=== PATIENT | female | born 2000 | race Caucasian/White ===

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

== ENCOUNTER 2018-02-10 07:02 | Emergency (ER) | payer SELFPAY ==
[2018-02-10 07:17] VITALS: BP 123/67
--- NOTE | 2018-02-10 07:26 | UC ---
Skin Complaint HPI - HPI Summary HPI Summary: Patient presents to urgent care with erythema on her lower abdomen. Patient states 2 days ago she had a boil that she tried to pop. Patient states yesterday she put warm compresses on it and noticed it was getting little bit red. Patient states she woke this morning after having been panama all night and she has increased redness. Patient reports mild discomfort. No drainage. Patient didn't interval development of 2 small blisters on the erythema. Patient does have a history of MRSA. Patient is not immunocompromised. Patient states her tetanus is up-to-date. Patient has not taken anything for discomfort. No fevers or chills. No other complaints. Patient's medications reviewed this visit Pt states she is not - History of Current Complaint Chief Complaint: UCRash Time Seen by Provider: 02/10/18 07:21 Stated Complaint: SKIN CONCERN Hx Obtained From: Patient Hx Last Menstrual Period: "Like, forever ago ... it's not regular" Onset/Duration: Gradual Onset Skin Exposure Onset/Duration: Hours Ago Onset Severity: Moderate Pain Intensity: 5 - Allergy/Home Medications Allergies/Adverse Reactions: Allergies Allergy/AdvReac Type Severity Reaction Status Date / Time No Known Allergies Allergy Verified 02/10/18 07:10 PMH/Surg Hx/FS Hx/Imm Hx Previously Healthy: Yes - MRSA Other History Of: Negative For: HIV, Hepatitis B, Hepatitis C, Anticoagulant Therapy - Surgical History Surgical History: Yes Surgery Procedure, Year, and Place: Appendectomy, [place] - Family History Known Family History: Positive: Cardiac Disease, Hypertension, Diabetes - Social History Occupation: Employed Full-time Lives: With Family Alcohol Use: Occasionally Substance Use Type: Marijuana - daily Substance Use Comment - Amount & Last Used: 09/23/17 Smoking Status (MU): Light Every Day Tobacco Smoker Type: Cigarettes Amount Used/How Often: 1/4 PPD Length of Time of Smoking/Using Tobacco: Since Age 14 When Did the Patient Quit Smoking/Using Tobacco: 2 YRS Household Exposure Type: Cigarettes - Immunization History Most Recent Tetanus Shot: UTD Vaccination Up to Date: Yes Review of Systems All Other Systems Reviewed And Are Negative: Yes Skin: Positive: Other Physical Exam - Summary Physical Exam Summary: Vital Signs Reviewed: Yes A+Ox3, no distress Eyes: Conjunctiva Clear, ENT: Hearing grossly normal mmmoist Neck: Positive: Supple Respiratory: Positive: No respiratory distress, No accessory muscle use + CTA throughout no w/r Cardiovascular: RRR nl s1, s2 no m/r CBT <2 sec abd soft + BS nt/nd no guarding, no distension Musculoskeletal Exam: NAIK x 4 without difficulty Strength Intact, ROM Intact Neurological: Positive: Alert, + sensation throughout Psychological: Positive: Normal Response To Family Skin: Positive: lower abd pt with 6x7cm area of erythema with scabbed lesion right lateral aspect part of erythema. Pt also with verticle patch of erythema with 2 small blistered area. no induration, crepitus well demarcated, warm, no fluctuance Triage Information Reviewed: Yes Vital Signs: Initial Vital Signs Temp 97.5 F 02/10/18 07:10 Pulse 87 02/10/18 07:10 Resp 18 02/10/18 07:10 BP 123/67 02/10/18 07:10 Pulse Ox 100 02/10/18 07:10 Images Front/Back of Body, Lg (Otero): 1 - erythema 2 - vetrical erythema with 2 small < 3mm blister Course/Dx - Course Course Of Treatment: Patient presents with progressive area of erythema on her lower abdomen. Patient states started after she manipulated a boil. Patient does have history of MRSA. Patient applied a heating pad overnight. Patient did develop some increased redness and 2 small blisters vertical to this initial erythema. Patient states that he had was not too hot. Patient without any induration or fluctuance. No concern for abscess at this time. Concern for cellulitis. We'll start patient on doxycycline. Discussed with patient wound care. Discussed with patient with strict return precautions emergency department for increased redness, fevers, pain or any other concerns. Patient states understanding and agreement. Blisters covered with nonstick bandage. - Diagnoses Provider Diagnosis: Cellulitis, abdominal wall Discharge - Sign-Out/Discharge Documenting (check all that apply): Patient Departure All imaging exams completed and their final reports reviewed: No Studies - Discharge Plan Condition: Stable Disposition: HOME Prescriptions: DOXYcycline CAP(*) [DOXYcycline 100MG CAP(*)] 100 mg PO BID #20 cap Patient Education Materials: MRSA (Methicillin-Resistant Staphylococcus Aureus ) (ED), Cellulitis (DC) Referrals: Taylor Rojas MD [Primary Care Provider] - Additional Instructions: - Take antibiotics as prescribed until gone - Alternate ibuprofen (Advil, Motrin) and Tylenol every 3 hours for pain. Take food. Do NOT take fore more than 4-5 days - Monitor your area of reddness closely -if you develop increased reddness, red streaking, increased pain, fever or any other concerns it is recommended you go to the emergency department for further evaluation and treatment - Billing Disposition and Condition Condition: STABLE Disposition: Home
== END 2018-02-10 07:37 | disposition home or self-care (01) ==
LOC: UCCORT 07:02
DX: L03.311 Cellulitis of abdominal wall (principal); Z86.14 Personal history of Methicillin resistant Staphylococcus aureus infection
CPT/HCPCS: 99212; G0463

== ENCOUNTER 2018-12-23 14:05 | Emergency (ER) | payer BC ==
--- OUTSIDE RECORDS SUMMARY | 2018-12-23 14:31 | XMS REPORT | Continuity of Care Document ---
:1998 External Reference #:[id number] Author Name Taylor Rojas MD Address [address] [place] [address] Problems Active Problems Provider Date Migraine Taylor Rojas MD Onset: 12/24/2015 Obesity Chloe Jimenez NP Onset: 05/26/2016 Tobacco user Chloe Jimenez NP Onset: 05/26/2016 Pain in limb Derick Fernández MD Onset: 02/20/2017 Carpal tunnel syndrome Taylor Rojas MD Onset: 03/25/2017 Cellulitis of left lower limb Derick Fernández MD Onset: 09/25/2017 Social History Type Date Description Comments Sex Unknown Tobacco Use Start: Unknown Light tobacco smoker (10 or fewer cigarettes/day) Tobacco Use Start: Unknown Never Smoked Cigars Tobacco Use Start: Unknown Never Smoked A Pipe Tobacco Use Start: Unknown Never Used Smokeless Tobacco ETOH Use Occasionally consumes alcohol Tobacco Use Start: Unknown Patient is a current smoker, smokes some days Recreational Drug Use Current Drug User Marijuanna Guns in Home No Allergies, Adverse Reactions, Alerts Description No Known Drug Allergies Medications Active Medications SIG Qnty Indications Ordering Date Provider Pantoprazole Sodium one tab by mouth 30tabs K21.9 Sandy Perea NP 2018 every day 40mg Tablets Citalopraprincess one tab every day 60tabs F33.0 Sandy Perea NP 11/30/2018 Hydrobromide by mouth increase 10mg to 2 tabs a day Tablets after one week Apri 1 by mouth every 168tabs Sandy Perea NP 11/30/2018 0.15-30mg-mcg day Tablets History Medications Omeprazole take one capsule 30caps Sandy Perea NP 11/30/2018 - 40mg by mouth every 12/01/[address] morning Medications Administered in Office Medication SIG Qnty Indications Ordering Provider Date vACCINE Admin Over 18 Nurse Schedule 12/18/2017 Injection MARK Martines 10/15/2016 Injection MARK Martines 11/24/2015 Injection MARK Martines 09/21/2013 Injection MARK Martines 09/14/2013 Injection MARK Martines 08/17/2012 Injection YUSUF Rojas MD 07/30/2011 Injection Immunizations CPT Code Status Date Vaccine Lot # [id number] Given 11/30/2018 Tdap/Adacel [id number] 64465 Given 11/30/2018 Influenza Virus Vaccine, Quadrivalent, Split, [id number] Preservative Free 06352 Given 12/18/2017 Influenza Virus Vaccine, Quadrivalent, Split, [id number] Preservative Free 07681 Given 12/23/2016 Flu Vaccine, Split [id number] 86495 Given 05/26/2016 Trumenba [id number] 83552 Given 11/24/2015 Menactra/menveo [id number] 30763 Given 11/24/2015 Flu Vaccine, Split [id number] 06789 Given 05/09/2015 Trumenba [id number] 67638 Given 02/21/2015 Trumenba [id number] 42718 Given 01/03/2015 Flu Mist [id number] 88495 Given 10/17/2013 Flu Vaccine, Split [id number] 86234 Given 11/24/2012 Flu Mist [id number] 25172 Given 05/23/2011 Gardasil 51492 Given 01/15/2011 Gardasil 19566 Given 10/15/2010 Flu Mist 66584 Given 10/15/2010 Gardasil 12471 Given 11/02/2009 Flu Mist 58207 Given 09/26/2009 Menactra/menveo 31250 Given 09/26/2009 Tdap/Adacel 50428 Given 11/14/2008 Flu Mist 89684 Given 08/21/2006 Varicella/Chicken Pox Vaccine 52455 Given 03/12/2006 Hepatitis A Vaccine 90478 Given 09/05/2005 Hepatitis A Vaccine 97830 Given 08/29/2003 IPV 42605 Given 08/29/2003 MMR 01198 Given 08/29/2003 DTaP 07928 Given 01/21/2000 DTaP 92448 Given 11/21/1999 IPV 59075 Given 11/21/1999 Varicella/Chicken Pox Vaccine 02180 Given 07/30/1999 Hepatitis B/Hib Combvax 91644 Given 07/30/1999 MMR 48399 Given 02/11/1999 DTaP 27775 Given 1998 Hepatitis B/Hib Combvax 87347 Given 1998 IPV 12611 Given 1998 DTaP 61341 Given 1998 Injection Polio Vaccine 24440 Given 1998 Hepatitis B/Hib Combvax 95138 Given 1998 DTaP Vital Signs Date Vital Result Comment 12/07/2018 1:25pm Body Temperature 99.1 F 11/30/2018 2:02pm Body Temperature 98.9 F BP Systolic 129 mmHg BP Diastolic 74 mmHg Heart Rate 74 /min Height 63.5 inches 5'3.50" Weight 225.25 lb BMI (Body Mass Index) 39.3 kg/m2 Right Visual Acuity Distance 20/20 Left Visual Acuity Distance 20/20 Right ear audiology results 20 dBHl Left ear audiology results 20 dBHl Results Test Date Facility Test Result H/L Range Note GC/Chlamydia 11/30/2018 [facility] Chlamydia Negative Negative Amplified Rna [phone] trachomatis Cassandra Neisseria gonorrhoeae (GC) Cassandra Negative Negative Hepatitis Acute 11/30/2018 [facility] Hepatitis B Nonreactive Nonreactive Panel [phone] Surface Antigen Hepatitis B Core IgM Nonreactive Nonreactive Hepatitis A Ab IgM Negative Negative HCV Index 0.02 s/c Hepatitis C Antibody Negative Negative Laboratory test 11/30/2018 [facility] Syphillis Igg Negative Negative 1 finding [phone] W/Reflex RPR Herpes Simplex Type 11/30/2018 [facility] Herpes Simplex Negative Negative 1&2 Igg [phone] Virus I IgG AB Herpes Simplex Virus II IgG AB Negative Negative 2 Laboratory test 11/30/2018 [facility] Herpes Simplex Negative Negative 3 finding [phone] Igm Screen 1 Verbal to SILVANA FREELOVE by [id number] at 1548 on 12/01/18. [id number] 2 Test Performed by: [facility] - [address] [address] [facility] Nurse: Robert Blanco M.D. Ph.D.; CLIA# [id number] ADDITIONAL INFORMATION This test has been modified from the it risk analyst's instructions. Its performance characteristics were determined by [facility] in a manner consistent with CLIA requirements. This test has not been cleared or approved by the U.S. Food and Drug Administration. Test Performed by: [facility] - [address] [address] [facility] Nurse: Robert Blanco M.D. Ph.D.; CLIA# [id number] Procedures Date Code Description Status 11/30/2018 43247 Visual Acuity Screen Bilat. Completed 11/30/2018 64614 Auditometry, Pure Tone Bilat Completed Medical Devices Description No Information Available Encounters Type Date Location Provider Dx Diagnosis Office Visit 11/30/2018 Main Office Taylor Rojas MD Z00.01 Encounter for 1:45p general adult medical exam w abnormal findings F33.0 Major depressive disorder, recurrent, mild Z23 Encounter for immunization Office Visit 09/22/2018 2:45p Main Office Sandy Perea NP R51 Headache Assessments Date Code Description Provider 12/07/2018 L60.0 Ingrowing nail Taylor Rojas MD 11/30/2018 Z00.01 Encounter for general adult medical examination Taylor Rojas MD with abnormal findings 11/30/2018 F33.0 Major depressive disorder, recurrent, mild Taylor Rojas MD 11/30/2018 Z23 Encounter for immunization Taylor Rojas MD 09/22/2018 R51 Headache Sandy Perea NP Plan of Treatment 12/07/2018 - Taylor Rojas MDL60.0 Ingrowing nailComments:soak dailyFollow up :As needed. Functional Status Description No Information Available Mental Status Description No Information Available Referrals Description No Information Available
--- OUTSIDE RECORDS SUMMARY | 2018-12-23 14:31 | XMS REPORT | Continuity of Care Document ---
:1998 External Reference #:[id number] Author Name Taylor Rojas MD Address [address] [place] [address] Problems Active Problems Provider Date Migraine Taylor [...] CPT Code Status Date Vaccine Lot # [id number] Given 11/30/2018 Tdap/Adacel [id number] 95494 Given 11/30/2018 Influenza Virus Vaccine, Quadrivalent, Split, [id number] Preservative Free 84983 Given 12/18/2017 Influenza Virus Vaccine, Quadrivalent, Split, [id number] Preservative Free 06425 Given 12/23/2016 Flu Vaccine, Split [id number] 36178 Given 05/26/2016 Trumenba [id number] 37716 Given 11/24/2015 Menactra/menveo [id number] 76943 Given 11/24/2015 Flu Vaccine, Split [id number] 91699 Given 05/09/2015 Trumenba [id number] 20132 Given 02/21/2015 Trumenba [id number] 78535 Given 01/03/2015 Flu Mist [id number] 50078 Given 10/17/2013 Flu Vaccine, Split [id number] 94055 Given 11/24/2012 Flu Mist [id number] 71993 Given 05/23/2011 Gardasil 69132 Given 01/15/2011 Gardasil 81534 Given 10/15/2010 Flu Mist 63855 Given 10/15/2010 Gardasil 19503 Given 11/02/2009 Flu Mist 69402 Given 09/26/2009 Menactra/menveo 98970 Given 09/26/2009 Tdap/Adacel 74661 Given 11/14/2008 Flu Mist 62128 Given 08/21/2006 Varicella/Chicken Pox Vaccine 83512 Given 03/12/2006 Hepatitis A Vaccine 30520 Given 09/05/2005 Hepatitis A Vaccine 68405 Given 08/29/2003 IPV 05415 Given 08/29/2003 MMR 19128 Given 08/29/2003 DTaP 74128 Given 01/21/2000 DTaP 32897 Given 11/21/1999 IPV 88037 Given 11/21/1999 Varicella/Chicken Pox Vaccine 93333 Given 07/30/1999 Hepatitis B/Hib Combvax 09500 Given 07/30/1999 MMR 11262 Given 02/11/1999 DTaP 93039 Given 1998 Hepatitis B/Hib Combvax 09345 Given 1998 IPV 73716 Given 1998 DTaP 92940 Given 1998 Injection Polio Vaccine 85530 Given 1998 Hepatitis B/Hib Combvax 92011 Given 1998 DTaP Vital Signs Date Vital Result Comment 11/30/2018 2:02pm Body Temperature 98.9 F BP Systolic 129 mmHg BP Diastolic 74 mmHg Heart Rate 74 /min Height 63.5 inches 5'3.50" Weight 225.25 lb BMI (Body Mass Index) 39.3 kg/m2 Right Visual Acuity Distance 20/20 Left Visual Acuity Distance 20/20 Right ear audiology results 20 dBHl Left ear audiology results 20 dBHl 09/22/2018 2:58pm Body Temperature 100.4 F BP Systolic 125 mmHg BP Diastolic 84 mmHg Heart Rate 76 /min Respiratory Rate 32 /min Height 63.75 inches 5'3.75" Weight 231.25 lb BMI (Body Mass Index) 40.0 kg/m2 Results Test Date Facility Test Result H/L Range Note Laboratory test 11/30/2018 [facility] Syphillis Igg <pending> finding [phone] W/Reflex RPR Laboratory test 11/30/2018 [facility] Herpes Simplex <pending> finding [phone] Igm Screen Procedures Description No Information Available Medical Devices Description No Information Available Encounters Type Date Location Provider Dx Diagnosis Office Visit 09/22/2018 2:45p Main Office Sandy Perea NP R51 Headache Assessments Date Code Description Provider 11/30/2018 Z00.01 Encounter for general adult medical examination Taylor Rojas MD with abnormal findings 11/30/2018 F33.0 Major depressive disorder, recurrent, mild Taylor Rojas MD 09/22/2018 R51 Headache Sandy Perea NP Plan of Treatment 11/30/2018 - Taylor Rojas MDZ00.01 Encounter for general adult medical examination with abnormal dmscusduB64.0 Major depressive disorder, recurrent, mildNew Medication:Citalopram Hydrobromide 10 mg - one tab every day by mouth increase to 2 tabs a day after one weekComments:to cut on the drinking or try to stopFollow up:3-4 weeks with me Functional Status Description No Information Available Mental Status Description No Information Available Referrals Description No Information Available
--- OUTSIDE RECORDS SUMMARY | 2018-12-23 14:32 | XMS REPORT | Continuity of Care Document ---
:1998 External Reference #:[id number] Author Name Sandy [place] [address] Problems Active Problems Provider Date Migraine Taylor [...] Alerts Description No Known Drug Allergies Medications Description No Active Medications Medications Administered in Office Medication SIG Qnty Indications Ordering Provider Date vACCINE Admin Over 18 Nurse Schedule 12/18/2017 Injection PPD MARK Umana 10/15/2016 Injection PPD MARK Umana 11/24/2015 Injection MARK Martines 09/21/2013 Injection MARK Martines 09/14/2013 Injection MARK Martines 08/17/2012 Injection YUSUF Rojas MD 07/30/2011 Injection Immunizations CPT Code Status Date Vaccine Lot # [id number] Given 12/18/2017 Influenza Virus Vaccine, Quadrivalent, Split, [id number] Preservative Free 01457 Given 12/23/2016 Flu Vaccine, Split [id number] 33202 Given 05/26/2016 Trumenba [id number] 74073 Given 11/24/2015 Menactra/menveo [id number] 38660 Given 11/24/2015 Flu Vaccine, Split [id number] 13289 Given 05/09/2015 Trumenba [id number] 30883 Given 02/21/2015 Trumenba [id number] 94180 Given 01/03/2015 Flu Mist [id number] 44898 Given 10/17/2013 Flu Vaccine, Split [id number] 25743 Given 11/24/2012 Flu Mist [id number] 81915 Given 05/23/2011 Gardasil 43347 Given 01/15/2011 Gardasil 22069 Given 10/15/2010 Flu Mist 09635 Given 10/15/2010 Gardasil 87543 Given 11/02/2009 Flu Mist 31992 Given 09/26/2009 Menactra/menveo 29087 Given 09/26/2009 Tdap/Adacel 64631 Given 11/14/2008 Flu Mist 56476 Given 08/21/2006 Varicella/Chicken Pox Vaccine 63394 Given 03/12/2006 Hepatitis A Vaccine 54841 Given 09/05/2005 Hepatitis A Vaccine 67781 Given 08/29/2003 IPV 15368 Given 08/29/2003 MMR 91811 Given 08/29/2003 DTaP 26279 Given 01/21/2000 DTaP 57976 Given 11/21/1999 Varicella/Chicken Pox Vaccine 67899 Given 11/21/1999 IPV 58159 Given 07/30/1999 MMR 57381 Given 07/30/1999 Hepatitis B/Hib Combvax 35146 Given 02/11/1999 DTaP 17451 Given 1998 Hepatitis B/Hib Combvax 76638 Given 1998 IPV 28596 Given 1998 DTaP 08086 Given 1998 Injection Polio Vaccine 07575 Given 1998 Hepatitis B/Hib Combvax 96778 Given 1998 DTaP Vital Signs Date Vital Result Comment 09/22/2018 2:58pm Body Temperature 100.4 F BP Systolic 125 mmHg BP Diastolic 84 mmHg Heart Rate 76 /min Respiratory Rate 32 /min Height 63.75 inches 5'3.75" Weight 231.25 lb BMI (Body Mass Index) 40.0 kg/m2 02/23/2018 11:49am Body Temperature 97.2 F Results Description No Information Available Procedures Description No Information Available Medical Devices Description No Information Available Encounters Type Date Location Provider Dx Diagnosis Office Visit 09/22/2018 2:45p Main Office Sandy Perea NP R51 Headache Assessments Date Code Description Provider 09/22/2018 R51 Headache Sandy Perea NP Plan of Treatment 09/22/2018 - Sandy Perea, NPR51 HeadacheComments:Neuro exam is essentially normal. Soumya can take tylenol or motrin for headache. We discussed supports, call if she has concerns.Follow up:As needed. Functional Status Description No Information Available Mental Status Description No Information Available Referrals Description No Information Available
[2018-12-23 14:41] VITALS: BP 127/54
--- NOTE | 2018-12-23 15:09 | UC ---
Complaint Female HPI - HPI Summary HPI Summary: Patient is a 18yo female presenting with itching and burning vulva x3 days. Notes "white clumpy and foul smelling discharge." Notes burning with urination. Denies other urinary symptoms. Denies pelvic pain/pressure. Denies any lesions. Denies any abnormal bleeding. Notes unprotected sex with new partner within the past week. Patient states no concern for any specific STI but would like to be tested. - History Of Current Complaint Chief Complaint: UCGU Stated Complaint: PERSONAL Hx Obtained From: Patient Hx Last Menstrual Period: PCOS - irregular periods Pain Intensity: 0 - Allergies/Home Medications Allergies/Adverse Reactions: Allergies Allergy/AdvReac Type Severity Reaction Status Date / Time No Known Allergies Allergy Verified 12/23/18 14:41 Home Medications: Home Medications Citalopram TAB* [Celexa TAB*] 1 tab PO DAILY 12/23/18 [History Confirmed ] Desogestrel-Ethinyl Estradiol [Enskyce 28 Tablet] 1 tab PO DAILY 12/23/18 [ History Confirmed 12/23/18] PMH/Surg Hx/FS Hx/Imm Hx Previously Healthy: Yes Other History Of: Negative For: HIV, Hepatitis B, Hepatitis C, Anticoagulant Therapy - Surgical History Surgical History: Yes Surgery Procedure, Year, and Place: Appendectomy, [place] - Family History Known Family History: Positive: Cardiac Disease, Hypertension, Diabetes - Social History Alcohol Use: Daily Substance Use Type: Marijuana Substance Use Comment - Amount & Last Used: daily Smoking Status (MU): Heavy Every Day Tobacco Smoker Type: Cigarettes Amount Used/How Often: 1/2 PPD Length of Time of Smoking/Using Tobacco: Since Age 14 When Did the Patient Quit Smoking/Using Tobacco: 2016 Household Exposure Type: Cigarettes - Immunization History Most Recent Tetanus Shot: UTD Vaccination Up to Date: Yes Review of Systems All Other Systems Reviewed And Are Negative: Yes Constitutional: Positive: Negative Respiratory: Positive: Negative Cardiovascular: Positive: Negative Gastrointestinal: Positive: Negative. Negative: Abdominal Pain, Vomiting, Diarrhea, Nausea Genitourinary: Positive: Vaginal/Penile Burning, Vaginal/Penile Itching, Vaginal /Penile Discharge. Negative: Dysuria, Hematuria, Frequency, Urgency, Vaginal/ Penile Pain, Vaginal/Penile Tenderness, Ulceration/Lesion, Abnormal Bleeding Musculoskeletal: Positive: Negative Neurological: Positive: Negative Physical Exam Triage Information Reviewed: Yes Appearance: Well-Appearing, No Pain Distress, Well-Nourished Vital Signs: Initial Vital Signs Temp 98 F 12/23/18 14:36 Pulse 71 12/23/18 14:36 Resp 18 12/23/18 14:36 BP 127/54 12/23/18 14:36 Pulse Ox 100 12/23/18 14:36 Vital Signs Reviewed: Yes Eyes: Positive: Conjunctiva Clear ENT: Positive: Hearing grossly normal Neck: Positive: Supple Respiratory Exam: Normal Respiratory: Positive: Lungs clear, Normal breath sounds, No respiratory distress Cardiovascular Exam: Normal Cardiovascular: Positive: RRR Pelvic Exam: Positive: External Exam Normal, No Cerv. Motion Tender, Discharge - thick white discharge noted on exam. Negative: Active Bleeding, Blood, Cervicitis, Lesions, Tender w/ Cervical Motion, Tender Adnexa, Ulcers Neurological: Positive: Alert Psychological: Positive: Age Appropriate Behavior Skin Exam: Normal Complaint Female Dx - Course Course Of Treatment: A chaperoned pelvic exam was performed on the patient. Educated patient of STIs and counseled on safe sex practices. Patient requested to be tested for all possible sexually transmitted infections. I directed her to use over-the- counter Monistat for treatment of possible use infection. Did not prescribe Diflucan due to interaction with citalopram. Informed the patient that any positive results will be relayed to her along with any changes in her treatment that needs to be made. Instructed her to follow up with PCP or [employer] [employer] if symptoms do not resolve after one week. Patient voiced understanding and agreed to the treatment plan. - Differential Dx/Diagnosis Provider Diagnosis: Vaginal yeast infection Discharge ED - Sign-Out/Discharge Documenting (check all that apply): Patient Departure All imaging exams completed and their final reports reviewed: No Studies - Discharge Plan Condition: Stable Disposition: HOME Patient Education Materials: Sexually Transmitted Diseases (ED), Yeast Infection (ED) Referrals: Linda Bruce MD [Medical Doctor] - If Needed Additional Instructions: As discussed, take Monistat 7 over the counter for treatment of yeast infection. You received testing for yeast, bacterial vaginosis, gonorrhea, and chlamydia today. You also received testing for HIV, syphilis, and hepatitis. You will be notified with any positive results or changes that need to be made in your treatment. Follow up with the Physician Referral or OBGYN referral listed below for further evaluation if symptoms persist. - Billing Disposition and Condition Condition: STABLE Disposition: Home
[2018-12-24 12:16] LABS: Hepatitis B Surface Antigen Nonreactive (Nonreactive)
[2018-12-24 12:30] LABS: HIV 4th Generation Nonreactive (Nonreactive)
[2018-12-24 12:33] LABS: Hepatitis C Antibody Negative (Negative)
[2018-12-27 12:59] LABS: Chlamydia trachomatis NAA Negative (Negative); Neisseria gonorrhoeae (GC) NAA Negative (Negative)
== END 2018-12-23 16:00 | disposition home or self-care (01) ==
LOC: UCCORT 14:05
DX: B37.3 Candidiasis of vulva and vagina (principal); R30.0 Dysuria; F17.210 Nicotine dependence, cigarettes, uncomplicated
CPT/HCPCS: 36415; 80074; 86780; 87389; 87480; 87491; 87510; 87591; 87661; 99212; G0463

== ENCOUNTER 2019-04-03 10:11 | Emergency (ER) | payer BC ==
--- OUTSIDE RECORDS SUMMARY | 2019-04-03 10:26 | XMS REPORT | Continuity of Care Document ---
:1998 External Reference #:[id number] Author Name MARK Nassar Address [address] [place] [address] Care Team Providers Name Role Phone Taylor Rojas MD - Pediatrics Care Team Information Tank Setter Helper [phone] Problems Active Problems Provider Date Migraine without aura, not refractory Andriy Cardenas M.D. Onset: 2016 Social History Type Date Description Comments Sex Unknown ETOH Use Denies alcohol use Recreational Drug Use Denies Drug Use Tobacco Use Start: Unknown Light tobacco smoker (10 or fewer cigarettes/day) Allergies, Adverse Reactions, Alerts Description No Known Drug Allergies Medications Active Medications SIG Qnty Indications Ordering Date Provider Magic Mouthwash visc lidocaine 240ml K12.1 Bruce 03/14/2019 Equal 2%,suyapa benito MD [employer] 12.5 mg per 5 milliliters elixir gargle three times a day Topiramate 1 qhs for 1 week 120tabs G43.009 Andriy Bowen 09/04/2016 25mg then 2 qhs for 1 Joi Cardenas Tablets week then 3 qhs for 1 week then 4 qhs Maxalt take one tablet by 9tabs G43.009 Andriy Bowen 09/04/2016 10mg Tablets mouth at onset of Joi Cardenas migraine, may repeat in 2 hours once, no more than 2 days a week Pantoprazole Sodium 1 by mouth every 14tabs Unknown day 40mg Tablets DR Urbano dickerson qday Bob, 0.15-30mg-veronica Vazquez MD Tablets Immunizations Description No Information Available Vital Signs Date Vital Result Comment 03/14/2019 5:31pm Heart Rate 114 /min BP Systolic Sitting 136 mmHg BP Diastolic Sitting 86 mmHg Respiratory Rate 16 /min Body Temperature 98.4 F O2 % BldC Oximetry 99 % room air 09/04/2016 10:47am Height 63.5 inches 5'3.50" Weight 220.00 lb Heart Rate 96 /min BP Systolic 122 mmHg BP Diastolic 72 mmHg Respiratory Rate 16 /min Pain Level 0 O2 % BldC Oximetry 98 % Ra BMI (Body Mass Index) 38.4 kg/m2 Blood Pressure Percentile 85 % Height Percentile 39 % Weight Percentile >97th Results Test Acquired Date Facility Test Result H/L Range Note Clinic Ua 03/14/2019 [facility] Glucose Ua n Negative Bilirubin Ua n Negative Ketone Ua n Negative Specific [place] Ua >1.030 1.010-1.030 Blood Ua tr Negative PH Ua 6.5 5-9 Protein Ua 1+ High Negative Urobilinogen Ua 0.2 0.2-1 Nitrite Ua n Negative Leukocytes Ua trace Negative Laboratory test finding 03/14/2019 [facility] Glucose 89 70- 100 mg/dl Procedures Description No Information Available Medical Devices Description No Information Available Encounters Type Date Location Provider Dx Diagnosis Office Visit 11/30/2018 [facility] Heike Jang S91.331A Puncture wound 10:52a Walk-in at [facility] without foreign Drugs body, right foot, init encntr Z28.83 Immunization not crd out due to unavailability of vaccine Assessments Date Code Description Provider 03/14/2019 K12.1 Stomatitis MARK Nassar 03/14/2019 E86.0 Dehydration MARK Nassar 11/30/2018 S91.331A Puncture wound without foreign body, right Heike Daniel PA[facility] foot, initial encounter 11/30/2018 Z28.83 Immunization not carried out due to Heike Daniel PA[facility] unavailability of vaccine Plan of Treatment 03/14/2019 - Kaela Bowles PAK12.1 StomatitisNew Medication:Magic Mouthwash Equal [employer] - visc lidocaine 2%,maalox, benedryl 12.5 mg per 5 milliliters elixir gargle three times a dayComments:FOLLOW UP WITH PRIMARY CARE IN 5 DAYS OR SOONER IF WORSE.E86.0 Dehydration Functional Status Description No Information Available Mental Status Description No Information Available Referrals Description No Information Available
--- OUTSIDE RECORDS SUMMARY | 2019-04-03 10:26 | XMS REPORT | Continuity of Care Document ---
:2000 External Reference #:[id number] Author Name Sandy [place] [address] Problems Active Problems Provider Date Migraine Taylor [...] Medications SIG Qnty Indications Ordering Date Provider Chlorhexidine 5 mls swish and 473ml K13.79 Sandy Perea NP 03/15/2019 Gluconate spit qid prn 0.12% Solution Omeprazole 2 tabs by mouth 60tabs R21 Mohammad 03/03/2019 20mg Tablets every day MD DR Martha Rojas apply to 22gm R21 Mohammad 03/03/2019 2% Ointment affected area MD Bob skin twice a day Differin daily face area 135gm L66.2 Mohammad 03/03/2019 0.1% Cream MD Bob Citalopram one tab every 60tabs F33.0 Sandy Perea NP 11/30/2018 Hydrobromide day by mouth 10mg Tablets increase to 2 tabs a day after one week Apri 1 by mouth every 168tabs Sandy Perea NP 11/30/2018 0.15-30mg-mcg day Tablets History Medications Amoxicillin 1 tab twice a 20tabs [facility] - 500mg day for 10 days MD oBb 02/18/2019 Tablets Prednisone 2 tabs by 12tabs [facility] - 20mg Tablets mouth twice a MD Bob 02/13/2019 day 3 days Pantoprazole Sodium one tab by 30caps R21 Sandy Perea NP 12/01/2018 - mouth every day 03/03/2019 40mg Capsules Omeprazole take one 30caps Sandy Perea NP 11/30/2018 - 40mg capsule by 12/01/[address] mouth every morning Medications Administered in Office Medication SIG Qnty Indications Ordering Provider Date PPD Nurse Schedule 03/01/2019 Injection vACCINE Admin Over 18 Nurse Schedule 12/18/2017 Injection MARK Martines 10/15/2016 Injection MARK Martines 11/24/2015 Injection MARK Martines 09/21/2013 Injection MARK Martines 09/14/2013 Injection MARK Martines 08/17/2012 Injection YUSUF Rojas MD 07/30/2011 Injection Immunizations CPT Code Status Date Vaccine Lot # [id number] Given 11/30/2018 Tdap/Adacel [id number] 74412 Given 11/30/2018 Influenza Virus Vaccine, Quadrivalent, Split, [id number] Preservative Free 49534 Given 12/18/2017 Influenza Virus Vaccine, Quadrivalent, Split, [id number] Preservative Free 12313 Given 12/23/2016 Flu Vaccine, Split [id number] 80931 Given 05/26/2016 Trumenba [id number] 57954 Given 11/24/2015 Menactra/geovani [id number] 08018 Given 11/24/2015 Flu Vaccine, Split [id number] 02043 Given 05/09/2015 Trumenba [id number] 92913 Given 02/21/2015 Trumenba [id number] 43579 Given 01/03/2015 Flu Mist [id number] 43493 Given 10/17/2013 Flu Vaccine, Split [id number] 54076 Given 11/24/2012 Flu Mist [id number] 93976 Given 05/23/2011 Gardasil 49859 Given 01/15/2011 Gardasil 76034 Given 10/15/2010 Flu Mist 11088 Given 10/15/2010 Gardasil 82567 Given 11/02/2009 Flu Mist 54285 Given 09/26/2009 Menactra/menveo 23026 Given 09/26/2009 Tdap/Adacel 32282 Given 11/14/2008 Flu Mist 84954 Given 08/21/2006 Varicella/Chicken Pox Vaccine 18302 Given 03/12/2006 Hepatitis A Vaccine 81294 Given 09/05/2005 Hepatitis A Vaccine 90552 Given 08/29/2003 IPV 14238 Given 08/29/2003 MMR 55906 Given 08/29/2003 DTaP 18281 Given 01/21/2000 DTaP 88273 Given 11/21/1999 IPV 06334 Given 11/21/1999 Varicella/Chicken Pox Vaccine 81251 Given 07/30/1999 Hepatitis B/Hib Combvax 90267 Given 07/30/1999 MMR 67611 Given 02/11/1999 DTaP 48699 Given 1998 Hepatitis B/Hib Combvax 98463 Given 1998 IPV 67257 Given 1998 DTaP 95052 Given 1998 Injection Polio Vaccine 78070 Given 1998 Hepatitis B/Hib Combvax 07529 Given 1998 DTaP Vital Signs Date Vital Result Comment 03/15/2019 11:41am Body Temperature 97.6 F BP Systolic 138 mmHg BP Diastolic 88 mmHg Heart Rate 116 /min Respiratory Rate 20 /min Weight 221.50 lb 03/03/2019 12:48pm Body Temperature 99.0 F Weight 223.38 lb Results Test Acquired Date Facility Test Result H/L Range Note CBS 01/04/2019 [facility] White Blood 7.1 K/uL Normal 3.1-10.7 1 W/Automated [address] [place] [address] [phone] Red Blood Count 4.01 M/uL Normal 3.90-5.40 Hemoglobin 12.4 gm/dL Normal 11.6-15.8 Hematocrit 36.5 % Normal 36.0-46.1 Mean Cell Volume 91.0 fl Normal 80.9-99.0 Mean Corpuscular HGB 30.9 pg Normal 25.9-32.7 Mean Corpuscular HGB Conc 34.0 g/dL Normal 30.8-34.3 Platelet Count 289 K/uL Normal 155-360 Red Cell Distri Width SD 41.5 fl Normal 36-47 Red Cell Distri Width %CV 12.5 % Normal 11.7-14.4 Mean Platelet Volume 10.4 fl Normal 8.9-12.4 Neut% 61.4 % Normal 28.0-68.0 Lymph % 29.8 % Normal 20.0-42.0 Florence % 6.8 % Normal 4.3-13.2 Eo% 1.3 % Normal 0.0-6.6 Bas% 0.3 % Normal 0.0-1.1 Immature Grans 0.4 % Normal 0.0-5.0 NRBC % 0.0 /100WBC < 10/ 100 WBC Neut# 4.33 K/uL Normal 1.8-7.0 Lymph # 2.10 K/uL Normal 1.0-4.0 Florence # 0.48 K/uL Normal 0.3-0.9 Eos # 0.09 K/uL Normal 0.0-0.5 Baso # 0.02 K/uL Normal 0.0-0.1 Immature Grans Absolute 0.03 K/uL NRBC # 0.00 K/uL [facility] 01/04/2019 [facility] Glucose 96 mg/dL Normal 74-106 Metabolic Panel [address] [place] [address] [phone] BUN 15 mg/dL Normal 7-18 Creatinine 1.0 mg/dL Normal 0.6-1.3 Glom Filtration Rate, Estimate >60 mL/min >60 If >60 mL/min >60 2 BUN/Creat 15.0 ratio Sodium 139 mmol/L Normal 136-145 Potassium 3.7 mmol/L Normal 3.5-5.1 Chloride 110 mmol/L High 98-107 Carbon Dioxide 25 mmol/L Normal 21-32 Anion Gap 4 mEq/L Low 8-16 Calcium 8.5 mg/dL Normal 8.5-10.1 Total Protein 7.5 g/dL Normal 6.4-8.2 Albumin 3.3 g/dL Low 3.4-5.0 Globulin 4.2 g/dL Normal 1.9-4.3 Alb/Glob 0.8 ratio Bilirubin,Total 0.2 mg/dL Normal 0.2-1.0 Sgot/Ast 15 U/L Normal 15-37 SGPT/Alt 26 U/L Normal 12-78 Alkaline Phosphatase 55 U/L Normal 45-117 Laboratory 01/04/2019 [facility] HCG,Serum NEGATIVE (Negative) 3 test finding [address] (Qualitative) [place], [place] [address] [phone] Laboratory 01/04/2019 [facility] HIV 1/2 Rapid Non-Reactiv 4 test finding [address] [place], [place] [id number] [phone] Laboratory 01/04/2019 [facility] Hepatitis B Non . 5 test finding [address] Surface Antibody Reactive [place], [place] [id number] [phone] Hepatitis C Antibody < 0.1 s/corat 0.0-0.9 6 Laboratory test 12/23/2018 [facility] Trichomonas Negative Negative 7, 8 finding [phone] vaginalis Rna GC/Chlamydia 12/23/2018 [facility] Chlamydia Negative Negative Amplified Rna [phone] trachomatis Cassandra Neisseria gonorrhoeae (GC) Cassandra Negative Negative GCCHL Disclaimer V 9 Laboratory 12/23/2018 [facility] Gardnerella/Yeast: SEE RESULT 10 test finding [phone] Vaginal Dna BELOW Laboratory 12/23/2018 [facility] Syphillis Igg Negative Negative 11 , test finding [phone] W/Reflex RPR 12 HIV 1&2 p24 12/23/2018 [facility] HIV 4th Generation Nonreactive Nonreactive Screen [phone] Hepatitis 12/23/2018 [facility] Hepatitis B Surface Nonreactive Nonreactive Acute Panel [phone] Antigen Hepatitis B Core IgM Nonreactive Nonreactive Hepatitis A Ab IgM Negative Negative HCV Index 0.01 s/c Hepatitis C Antibody Negative Negative GC/Chlamydia 11/30/2018 [facility] Chlamydia Negative Negative Amplified Rna [phone] trachomatis Cassandra Neisseria gonorrhoeae (GC) Cassandra Negative Negative Hepatitis Acute 11/30/2018 [facility] Hepatitis B Nonreactive Nonreactive Panel [phone] Surface Antigen Hepatitis B Core IgM Nonreactive Nonreactive Hepatitis A Ab IgM Negative Negative HCV Index 0.02 s/c Hepatitis C Antibody Negative Negative Laboratory test 11/30/2018 [facility] Syphillis Igg Negative Negative 13 finding [phone] W/Reflex RPR Herpes Simplex 11/30/2018 [facility] Herpes Simplex Negative Negative Type 1&2 Igg [phone] Virus I IgG AB Herpes Simplex Virus II IgG AB Negative Negative 14 Laboratory test 11/30/2018 [facility] Herpes Simplex Negative Negative 15 finding [phone] Igm Screen 1 SEE A NURSE 2 Note: Persistent reduction for 3 months or more in an eGFR <60 mL/min/1.73 m2 defines CKD. Patients with eGFR values >/=60 mL/min/1.73 m2 may also have CKD if evidence of persistent proteinuria is present. The original MDRD equation for estimated GFR is not valid for patients less than 18 years of age. Additional information may be found at www.kdoqi.org. 3 Method: Quidel QuickVue One-Step Immunoassay 4 NOTE: A NON-REACTIVE RESULT INDICATES THAT HIV 1/2 ANTIBODIES HAVE NOT BEEN FOUND IN THIS PATIENT SPECIMEN. A NON-REACTIVE RESULT, HOWEVER, DOES NOT PRECLUDE PREVIOUS EXPOSURE OF INFECTION WITH HIV 1/2. Method: Uni-Gold Recombigen HIV 1/2 Rapid Immunoassay [facility] * [place] STATE LAW PROHIBITS THE REDISCLOSURE OF THIS RESULT * * TO ANY UNAUTHORIZED CONSTITUTION PARTY. * 5 Non Reactive: Inconsistent with immunity, less than 10 mIU/mL Reactive: Consistent with immunity, greater than 9.9 mIU/mL 6 INFCE Result Units: s/co ratio Negative: < 0.8 Indeterminate: 0.8 - 0.9 Positive: > 0.9 The CDC recommends that a positive HCV antibody result be followed up with a HCV Nucleic Acid Amplification test (142960). Performed at: [address] [id number] Antiquer: Romi Maher MD, Phone: [phone] Would you like to order Trichomonas Vaginalis RNA testing? Y [id number] 8 As with all diagnostic procedures, the laboratory results obtained should be used in conjunction with other clinical information available to the physician, including confirmation by another method, as applicable. 9 As with all diagnostic procedures, the laboratory results obtained should be used in conjunction with other clinical information available to the physician, including confirmation by another method, as applicable. 10 SEE RESULT BELOW Name: SOUMYA PAEZ : [address]: James Vickers MD Acct: [id number] Unit: [id number] AGE: 18 Location: [facility] Re12/23/18 SEX: F Status: DEP ER SPEC: [id number] DAMARIS: 12/23/18 [facility] DR: Leeanna FLORES REQ: [id number] RECD: 12/24/18 STATUS: CATIA HARTLEY DR: Taylor Vickers MD _ SOURCE: VAGINAL SPDESC: ORDERED: Donny,Yeast DNA COMMENTS: Would you like to order Trichomonas Vaginalis RNA testing? Y [id number] Procedure Result Reported Site Gardnerella/Yeast: Vaginal DNA Final 12/24/18- 1509 ML Organism 1 POSITIVE MORENITA Organism 2 Negative Gardnerella The presence of G. vaginalis, although suggestive, is not diagnostic for bacterial vaginosis. Results should be interpreted in conjuction with other clinical and laboratory data available. Women with vaginal discharge should be evaluated for risk factors of cervicitis and pelvic inflammatory disease, toxic shock syndrome (S.aureus), and if present, evaluated for organisms not included in this assay such as N. gonorrhoeae, C. trachomatis, Mobiluncus, Mycoplasma and/or Prevotella. Mixed infections may occur. The performance of this test on patient specimens collected during or immediately after antimicrobial therapy is unknown. The presence or absence of Morenita species, or G. vaginalis cannot be used as a test for therapeutic success or failure. CONTINUED ON NEXT PAGE DEPARTMENT OF PATHOLOGY, [address] [place] [address] Barney Miller M.D. Director [facility] # [id number] Specimen: [id number] Collected: 12/23/18 Received: 12/24/18 (Continued) Procedure Result Reported Site Gardnerella/Yeast: Vaginal DNA Final (continued) 12/24/18- 1509 * - [facility] . END OF REPORT DEPARTMENT OF PATHOLOGY, [address] [place] [address] Barney Miller M.D. Director [facility] # [id number] 11 [id number] 12 [id number] 13 Verbal to SILVANA REDDY by ARGENIS at 1548 on 12/01/18. [id number] 14 Test Performed by: [facility] [address] Antiquer: Robert Blanco M.D. Ph.D.; IA# [id number] 15 ADDITIONAL INFORMATION This test has been modified from the recreation coordinator's instructions. Its performance characteristics were determined by [facility] in a manner consistent with CLIA requirements. This test has not been cleared or approved by the U.S. Food and Drug Administration. Test Performed by: [facility] [place] [address] Antiquer: Robert Blanco M.D. Ph.D.; CLIA# [id number] Procedures Date Code Description Status 11/30/2018 16044 Visual Acuity Screen Bilat. 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 K21.9 Gastro-esophageal reflux disease without esophagitis Office Visit 02/08/2019 10:45a Main Office Taylor J02.9 Acute pharyngitis, MD Bob unspecified J35.1 Hypertrophy of tonsils Office Visit 01/01/2019 9:15a Main Office Chloe Jimenez NP B34.9 Viral infection, unspecified Office Visit 12/07/2018 1:15p Main Office Taylor L60.0 Ingrowing nail MD Bob Office Visit 11/30/2018 1:45p Main Office Taylor Z00.01 Encounter for MD Bob general adult medical exam w abnormal findings F33.0 Major depressive disorder, recurrent, mild Z23 Encounter for immunization Office Visit 09/22/2018 2:45p Main Office Sandy Perea NP R51 Headache Assessments Date Code Description Provider 03/15/2019 K13.79 Other lesions of oral mucosa Sandy Perea NP 03/03/2019 R21 Rash and other nonspecific skin eruption Taylor Rojas MD 03/03/2019 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 Taylor Rojas MD 03/03/2019 K21.9 Gastro-esophageal reflux disease without Taylor Rojas MD esophagitis 02/08/2019 J02.9 Acute pharyngitis, unspecified Taylor Rojas MD 02/08/2019 J35.1 Hypertrophy of tonsils Taylor Rojas MD 01/01/2019 B34.9 Viral infection, unspecified Chloe Jimenez NP 12/07/2018 L60.0 Ingrowing nail Taylor Rojas MD 11/30/2018 Z00.01 Encounter for general adult medical examination Taylor Rojas MD with abnormal findings 11/30/2018 F33.0 Major depressive disorder, recurrent, mild Taylor Rojas MD 11/30/2018 Z23 Encounter for immunization Taylor Rojas MD 09/22/2018 R51 Headache Sandy Perea NP Plan of Treatment 03/15/2019 - Sandy Perea NPK13.79 Other lesions of oral mucosaNew Medication: Chlorhexidine Gluconate 0.12 % - 5 mls swish and spit qid prnComments:Exam is stable. Area that Soumya is referring to looks like mucosa that is healing from either somthing her mouth reacted to or something she eats. There is no discomfort and it is very minimally noticable. She does have very large tonsils , especially the left. She denies any difficulty swallowing at this time ( states she has seen ENT in the past). We have prescribed mouth wash for her to use, peridex.Follow up:As needed. Functional Status Description No Information Available Mental Status Description No Information Available Referrals Description No Information Available
--- OUTSIDE RECORDS SUMMARY | 2019-04-03 10:26 | XMS REPORT | Continuity of Care Document ---
:2000 External Reference #:[id number] Author Name Taylor Rojas MD Address [address] [place] [address] Problems Active Problems Provider Date Migraine Taylor [...] Medications SIG Qnty Indications Ordering Date Provider Omeprazole 2 tabs by mouth 60tabs R21 Taylor 03/03/2019 20mg Tablets every day MD NATALI Rojas Mupirocin apply to affected 22gm R21 Mohkay 03/03/2019 2% Ointment area skin twice a MD Bob day Differin daily face area 135gm L66.2 Taylor 03/03/2019 0.1% Cream MD Bob Citalopram one tab every day 60tabs F33.0 Sandy Perea NP 11/30/2018 Hydrobromide by mouth increase 10mg to 2 tabs a day Tablets after one week Apri 1 by mouth every 168tabs Sandy Perea NP 11/30/2018 0.15-30mg-mcg day Tablets History Medications Amoxicillin 1 tab twice a 20tabs J02.9 [facility] 02/08/2019 - 500mg day for 10 days MD Bob 02/18/2019 Tablets Prednisone 2 tabs by 12tainderjit Vazquez 02/08/2019 - 20mg Tablets mouth twice a MD Bob 02/13/2019 day 3 days Pantoprazole Sodium one tab by 30caps R21 Sandy Perea NP 12/01/2018 - mouth every day 03/03/2019 40mg Capsules Omeprazole take one 30caps Sandy Perea NP 11/30/2018 - 40mg capsule by 12/01/2018 Capsules mouth every morning Medications Administered in Office Medication SIG Qnty Indications Ordering Provider Date PPD Nurse Schedule 03/01/2019 Injection vACCINE Admin Over 18 Nurse Schedule 12/18/2017 Injection MARK Martines 10/15/2016 Injection MARK Martines 11/24/2015 Injection MARK Martines 09/21/2013 Injection MARK Martines 09/14/2013 Injection MARK Martines 08/17/2012 Injection YUSUF Rojas MD 07/30/2011 Injection Immunizations CPT Code Status Date Vaccine Lot # [id number] Given 11/30/2018 Tdap/Adacel [id number] 80037 Given 11/30/2018 Influenza Virus Vaccine, Quadrivalent, Split, [id number] Preservative Free 98079 Given 12/18/2017 Influenza Virus Vaccine, Quadrivalent, Split, [id number] Preservative Free 12297 Given 12/23/2016 Flu Vaccine, Split [id number] 88642 Given 05/26/2016 Trumenba [id number] 31030 Given 11/24/2015 Menactra/menveo [id number] 58325 Given 11/24/2015 Flu Vaccine, Split [id number] 25812 Given 05/09/2015 Trumenba [id number] 44752 Given 02/21/2015 Trumenba [id number] 95568 Given 01/03/2015 Flu Mist [id number] 03623 Given 10/17/2013 Flu Vaccine, Split [id number] 64312 Given 11/24/2012 Flu Mist [id number] 07293 Given 05/23/2011 Gardasil 45948 Given 01/15/2011 Gardasil 49547 Given 10/15/2010 Flu Mist 45728 Given 10/15/2010 Gardasil 77291 Given 11/02/2009 Flu Mist 42675 Given 09/26/2009 Menactra/menveo 50192 Given 09/26/2009 Tdap/Adacel 28676 Given 11/14/2008 Flu Mist 58853 Given 08/21/2006 Varicella/Chicken Pox Vaccine 58643 Given 03/12/2006 Hepatitis A Vaccine 73986 Given 09/05/2005 Hepatitis A Vaccine 88146 Given 08/29/2003 IPV 86069 Given 08/29/2003 MMR 14865 Given 08/29/2003 DTaP 60949 Given 01/21/2000 DTaP 36735 Given 11/21/1999 IPV 64378 Given 11/21/1999 Varicella/Chicken Pox Vaccine 25461 Given 07/30/1999 Hepatitis B/Hib Combvax 96470 Given 07/30/1999 MMR 50008 Given 02/11/1999 DTaP 48653 Given 1998 Hepatitis B/Hib Combvax 56585 Given 1998 IPV 62975 Given 1998 DTaP 83164 Given 1998 Injection Polio Vaccine 40795 Given 1998 Hepatitis B/Hib Combvax 10277 Given 1998 DTaP Vital Signs Date Vital Result Comment 03/03/2019 12:48pm Body Temperature 99.0 F Weight 223.38 lb 02/08/2019 11:01am Body Temperature 97.1 F Heart Rate 80 /min Respiratory Rate 16 /min Results Test Acquired Date Facility Test Result H/L Range Note CBS 01/04/2019 [facility] White Blood 7.1 K/uL Normal 3.1-10.7 1 W/Automated [address] [place] [address] [phone] Red Blood Count 4.01 M/uL Normal 3.90-5.40 [...] 28.0-68.0 Lymph % 29.8 % Normal 20.0-42.0 [place] % 6.8 % Normal 4.3-13.2 Eo% 1.3 % Normal 0.0-6.6 Bas% 0.3 % Normal 0.0-1.1 Immature Grans 0.4 % Normal 0.0-5.0 NRBC % 0.0 /100WBC < 10/ 100 WBC Neut# 4.33 K/uL Normal 1.8-7.0 Lymph # 2.10 K/uL Normal 1.0-4.0 [place] # 0.48 K/uL Normal 0.3-0.9 Eos # 0.09 K/uL Normal 0.0-0.5 Baso # 0.02 K/uL Normal 0.0-0.1 Immature Grans Absolute 0.03 K/uL NRBC # 0.00 K/uL Comprehensive 01/04/2019 [facility] Glucose 96 mg/dL Normal 74-106 Metabolic Panel [address] [place] [address] [phone] BUN 15 mg/dL Normal 7-18 Creatinine 1.0 [...] Phosphatase 55 U/L Normal 45-117 Laboratory 01/04/2019 [facility] HCG,Serum NEGATIVE (Negative) 3 test finding [address] (Qualitative) [place], [place] [id number] [phone] Laboratory 01/04/2019 [facility] HIV 1/2 Rapid Non-Reactiv 4 test finding [address] [place] [address] [phone] Laboratory 01/04/2019 [facility] Hepatitis B Non . 5 test finding [address] [place] [address] [phone] Hepatitis C Antibody < 0.1 s/corat 0.0-0.9 6 Laboratory test 12/23/2018 [facility] Trichomonas Negative Negative 7, 8 finding [phone] vaginalis Rna GC/Chlamydia 12/23/2018 [facility] Chlamydia Negative Negative Amplified Rna [phone] trachomatis Cassandra Neisseria gonorrhoeae (GC) Cassandra Negative Negative GCCHL Disclaimer V 9 Laboratory 12/23/2018 [facility] Gardnerella/Yeast: SEE RESULT 10 test finding [phone] Vaginal Dna BELOW Laboratory 12/23/2018 [facility] Syphillis Igg Negative Negative 11 , test finding [phone] W/Reflex RPR 12 HIV 1&2 p24 12/23/2018 [facility] HIV 4th Generation Nonreactive Nonreactive Screen [phone] Hepatitis 12/23/2018 [facility] Hepatitis B Surface Nonreactive Nonreactive Acute Panel [phone] Antigen Hepatitis B Core IgM Nonreactive Nonreactive Hepatitis A Ab IgM Negative Negative HCV Index 0.01 s/c Hepatitis C Antibody Negative Negative GC/Chlamydia 11/30/2018 [facility] Chlamydia Negative Negative Amplified Rna [phone] trachomatis Cassandra Neisseria gonorrhoeae (GC) Cassandra Negative Negative Hepatitis Acute 11/30/2018 [facility] Hepatitis B Nonreactive Nonreactive Panel [phone] Surface Antigen Hepatitis B Core IgM Nonreactive Nonreactive Hepatitis A Ab IgM Negative Negative HCV Index 0.02 s/c Hepatitis C Antibody Negative Negative Laboratory test 11/30/2018 [facility] Syphillis Igg Negative Negative 13 finding [phone] W/Reflex RPR Herpes Simplex 11/30/2018 [facility] Herpes Simplex Negative Negative Type 1&2 Igg [phone] Virus I IgG AB Herpes Simplex Virus II IgG AB Negative Negative 14 Laboratory test 11/30/2018 [facility] Herpes Simplex Negative Negative 15 finding [phone] Igm Screen 1 SEE A NURSE 2 [...] may be found at [email or web address]. 3 Method: Homejoyidel QuickVue One-Step Immunoassay 4 NOTE: A NON-REACTIVE RESULT INDICATES THAT HIV 1/2 ANTIBODIES HAVE NOT BEEN FOUND IN THIS PATIENT SPECIMEN. A NON-REACTIVE RESULT, HOWEVER, DOES NOT PRECLUDE PREVIOUS EXPOSURE OF INFECTION WITH HIV 1/2. Method: Uni-Gold Recombigen HIV 1/2 Rapid Immunoassay [employer] * [place] STATE LAW PROHIBITS THE REDISCLOSURE OF THIS RESULT * * TO ANY UNAUTHORIZED LIBERTARIAN. * 5 Non Reactive: Inconsistent with immunity, less than 10 mIU/mL Reactive: Consistent with immunity, greater than 9.9 mIU/mL 6 INFCE Result Units: s/co ratio Negative: < 0.8 Indeterminate: 0.8 - 0.9 Positive: > 0.9 The CDC recommends that a positive HCV antibody result be followed up with a HCV Nucleic Acid Amplification test (181572). Performed at: [address] [id number] Field Installation Technician: Romi Maher MD, Phone: [phone] Would you like to order Trichomonas Vaginalis RNA testing? Y [id number] As with all diagnostic procedures, the [...] [address]: James Vickers MD Acct: [id number] Unit: [id number] AGE: 18 Location: [facility] Re12/23/18 SEX: F Status: DEP ER SPEC: [id number] DAMARIS: 12/23/18 [facility] DR: Leeanna FLORES REQ: [id number] RECD: 12/24/18 STATUS: CATIA HARTLEY DR: Taylor Vickers MD _ SOURCE: VAGINAL SPDESC: ORDERED: Donny,Yeast DNA COMMENTS: Would you like to order Trichomonas Vaginalis RNA testing? Y [id number] Procedure Result Reported Site Gardnerella/Yeast: Vaginal DNA [...] CONTINUED ON NEXT PAGE DEPARTMENT OF PATHOLOGY, [address] [place] [address] Barney Miller M.D. Director [facility] # [id number] Specimen: [id number] Collected: 12/23/18 Received: 12/24/18 (Continued) Procedure Result Reported Site Gardnerella/Yeast: Vaginal DNA Final (continued) 12/24/18- 1509 * - [facility] . END OF REPORT DEPARTMENT OF PATHOLOGY, [address] [place] [address] Barney Miller M.D. Director [facility] # [id number] 11 [id number] 12 [id number] 13 Verbal to SILVANA REDDY by [email or web address] at 1548 on 12/01/18. [id number] 14 Test Performed by: [facility] [employer] - [address] [address] Field Installation Technician: Robert Blanco M.D. Ph.D.; CLIA# [id number] 15 ADDITIONAL INFORMATION This test has been modified from the business area manager's instructions. Its performance characteristics were determined by [facility] in a manner consistent with CLIA requirements. This test has not been cleared or approved by the U.S. Food and Drug Administration. Test Performed by: [facility] [employer] - [address] [address] Field Installation Technician: Robert Blanco M.D. Ph.D.; CLIA# [id number] Procedures Date Code Description Status 11/30/2018 65570 Visual Acuity Screen Bilat. Completed 11/30/2018 91045 Auditometry, Pure Tone Bilat Completed Medical Devices Description No Information Available Encounters Type Date Location Provider Dx Diagnosis Office Visit 02/08/2019 Main Office Taylor J02.9 Acute pharyngitis, 10:45a MD Bob unspecified J35.1 Hypertrophy of tonsils [...] R51 Headache Assessments Date Code Description Provider 03/03/2019 R21 Rash and other nonspecific skin [...] Headache Sandy Perea NP Plan of Treatment 03/03/2019 - Taylor RojasMDR21 Rash and other nonspecific skin eruptionNew Medication:Omeprazole 20 mg - 2 tabs by mouth every dayMupirocin 2 % - apply to affected area skin twice a day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New Medication: Differin 0.1 % - daily face areaComments:may use a bath once a week with 1/2 cap full mbyysvF28.9 Gastro-esophageal reflux disease without esophagitisComments:trial of omeprazole Functional Status Description No Information Available Mental Status Description No Information Available Referrals Description No Information Available
--- OUTSIDE RECORDS SUMMARY | 2019-04-03 10:26 | XMS REPORT | Continuity of Care Document ---
:2000 External Reference #:[id number] Author Name Taylor Rojas MD Address [address] [place] [address] Problems Active Problems Provider Date Migraine Taylor [...] Medications SIG Qnty Indications Ordering Date Provider Amoxicillin 1 tab twice a day 20tabs J02.9 Taylor 02/08/2019 500mg for 10 days MD Bob Tablets Pantoprazole Sodium one tab by mouth 30tabs K21.9 Sandy Perea NP 2018 every day 40mg Tablets DR Castillo one tab every day 60tabs F33.0 Sandy Perea NP 11/30/2018 Hydrobromide by mouth increase 10mg to 2 tabs a day Tablets after one week Apri 1 by mouth every 168tabs Sandy Perea NP 11/30/2018 0.15-30mg-mcg day Tablets History Medications Omeprazole take one capsule 30caps Sandy Perea NP 11/30/2018 - 40mg by mouth every 12/01/[address] royer Medications Administered in Office Medication SIG Qnty Indications Ordering Provider Date vACCINE Admin Over 18 Nurse Schedule 12/18/2017 Injection MARK Martines 10/15/2016 Injection MARK Martines 11/24/2015 Injection MARK Martines 09/21/2013 Injection MARK Martines 09/14/2013 Injection MARK Martines 08/17/2012 Injection YUSUF Rojas MD 07/30/2011 Injection Immunizations CPT Code Status Date Vaccine Lot # 90031 Given 11/30/2018 Tdap/Adacel [id number] 29671 Given 11/30/2018 Influenza Virus Vaccine, Quadrivalent, Split, [id number] Preservative Free 64859 Given 12/18/2017 Influenza Virus Vaccine, Quadrivalent, Split, [id number] Preservative Free 80907 Given 12/23/2016 Flu Vaccine, Split [id number] 27476 Given 05/26/2016 Trumenba [id number] 53352 Given 11/24/2015 Menactra/menveo [id number] 40576 Given 11/24/2015 Flu Vaccine, Split [id number] 51588 Given 05/09/2015 Trumenba [id number] 70783 Given 02/21/2015 Trumenba [id number] 23833 Given 01/03/2015 Flu Mist [id number] 63338 Given 10/17/2013 Flu Vaccine, Split [id number] 17310 Given 11/24/2012 Flu Mist [id number] 12845 Given 05/23/2011 Gardasil 66123 Given 01/15/2011 Gardasil 34026 Given 10/15/2010 Flu Mist 47852 Given 10/15/2010 Gardasil 14152 Given 11/02/2009 Flu Mist 72394 Given 09/26/2009 Menactra/menveo 14391 Given 09/26/2009 Tdap/Adacel 63588 Given 11/14/2008 Flu Mist 76849 Given 08/21/2006 Varicella/Chicken Pox Vaccine 51394 Given 03/12/2006 Hepatitis A Vaccine 14886 Given 09/05/2005 Hepatitis A Vaccine 14797 Given 08/29/2003 IPV 17088 Given 08/29/2003 MMR 16751 Given 08/29/2003 DTaP 30000 Given 01/21/2000 DTaP 69381 Given 11/21/1999 IPV 42283 Given 11/21/1999 Varicella/Chicken Pox Vaccine 41274 Given 07/30/1999 Hepatitis B/Hib Combvax 41374 Given 07/30/1999 MMR 44165 Given 02/11/1999 DTaP 69001 Given 1998 Hepatitis B/Hib Combvax 15401 Given 1998 IPV 89207 Given 1998 DTaP 85863 Given 1998 Injection Polio Vaccine 77853 Given 1998 Hepatitis B/Hib Combvax 69969 Given 1998 DTaP Vital Signs Date Vital Result Comment 02/08/2019 11:01am Body Temperature 97.1 F Heart Rate 80 /min Respiratory Rate 16 /min 01/01/2019 9:26am Body Temperature 98.1 F BP Systolic 116 mmHg BP Diastolic 72 mmHg Heart Rate 84 /min Results Test Acquired Date Facility Test Result H/L Range Note CBS 01/04/2019 [facility] White Blood 7.1 K/uL Normal 3.1-10.7 1 W/Automated [address] [place] [address] [phone] Red Blood Count 4.01 M/uL Normal 3.90-5.40 [...] 28.0-68.0 Lymph % 29.8 % Normal 20.0-42.0 [place] % 6.8 % Normal 4.3-13.2 Eo% 1.3 % Normal 0.0-6.6 Bas% 0.3 % Normal 0.0-1.1 Immature Grans 0.4 % Normal 0.0-5.0 NRBC % 0.0 /100WBC < 10/ 100 WBC Neut# 4.33 K/uL Normal 1.8-7.0 Lymph # 2.10 K/uL Normal 1.0-4.0 [place] # 0.48 K/uL Normal 0.3-0.9 Eos # 0.09 K/uL Normal 0.0-0.5 Baso # 0.02 K/uL Normal 0.0-0.1 Immature Grans Absolute 0.03 K/uL NRBC # 0.00 K/uL Comprehensive 01/04/2019 [facility] Glucose 96 mg/dL Normal 74-106 Metabolic Panel [address] [place] [address] [phone] BUN 15 mg/dL Normal 7-18 Creatinine 1.0 [...] Phosphatase 55 U/L Normal 45-117 Laboratory 01/04/2019 [facility] HCG,Serum NEGATIVE (Negative) 3 test finding [address] (Qualitative) [place] [address] [phone] Laboratory 01/04/2019 [facility] HIV 1/2 Rapid Non-Reactiv 4 test finding [address] [place] [address] [phone] Laboratory 01/04/2019 [facility] Hepatitis B Non . 5 test finding [address] Surface Antibody Reactive [place], [place] [address] [phone] Hepatitis C Antibody < 0.1 s/corat 0.0-0.9 6 Laboratory test 12/23/2018 [facility] Trichomonas Negative Negative 7, 8 finding [phone] vaginalis Rna GC/Chlamydia 12/23/2018 [facility] Chlamydia Negative Negative Amplified Rna [phone] trachomatis Cassandra Neisseria gonorrhoeae (GC) Cassandra Negative Negative GCCHL Disclaimer V 9 Laboratory 12/23/2018 [facility] Gardnerella/Yeast: SEE RESULT 10 test finding [phone] Vaginal Dna BELOW Laboratory 12/23/2018 [facility] Syphillis Igg Negative Negative 11 , test finding [phone] W/Reflex RPR 12 HIV 1&2 p24 12/23/2018 [facility] HIV 4th Generation Nonreactive Nonreactive Screen [phone] Hepatitis 12/23/2018 [facility] Hepatitis B Surface Nonreactive Nonreactive Acute Panel [phone] Antigen Hepatitis B Core IgM Nonreactive Nonreactive Hepatitis A Ab IgM Negative Negative HCV Index 0.01 s/c Hepatitis C Antibody Negative Negative GC/Chlamydia 11/30/2018 [facility] Chlamydia Negative Negative Amplified Rna [phone] trachomatis Cassandra Neisseria gonorrhoeae (GC) Cassandra Negative Negative Hepatitis Acute 11/30/2018 [facility] Hepatitis B Nonreactive Nonreactive Panel [phone] Surface Antigen Hepatitis B Core IgM Nonreactive Nonreactive Hepatitis A Ab IgM Negative Negative HCV Index 0.02 s/c Hepatitis C Antibody Negative Negative Laboratory test 11/30/2018 [facility] Syphillis Igg Negative Negative 13 finding [phone] W/Reflex RPR Herpes Simplex 11/30/2018 [facility] Herpes Simplex Negative Negative Type 1&2 Igg [phone] Virus I IgG AB Herpes Simplex Virus II IgG AB Negative Negative 14 Laboratory test 11/30/2018 [facility] Herpes Simplex Negative Negative 15 finding [phone] Igm Screen 1 SEE A NURSE 2 [...] Method: Uni-Gold Recombigen HIV 1/2 Rapid Immunoassay [employer] * [place] STATE LAW PROHIBITS THE REDISCLOSURE OF THIS [...] with a HCV Nucleic Acid Amplification test (187530). Performed at: RN - [facility] [address] [id number] Model And Pattern Supervisor: Romi Maher MD, Phone: [phone] Would you like to order Trichomonas Vaginalis RNA testing? Y [id number] As with all diagnostic procedures, the [...] [address]: James Vickers MD Acct: [id number] Unit: [id number] AGE: 18 Location: [facility] Re12/23/18 SEX: F Status: DEP ER SPEC: [id number] DAMARIS: 12/23/[address] [facility] [address]: Leeanna FLORES REQ: [id number] RECD: 12/24/18 STATUS: CATIA [facility] DR: Taylor Vickers MD _ SOURCE: VAGINAL SPDESC: ORDERED: Donny,Yeast DNA COMMENTS: Would you like to order Trichomonas Vaginalis RNA testing? Y [id number] Procedure Result Reported Site Gardnerella/Yeast: Vaginal DNA [...] CONTINUED ON NEXT PAGE DEPARTMENT OF PATHOLOGY, [address] [place] [address] Barney Miller M.D. Director [facility] # [id number] Specimen: [id number] Collected: 12/23/18 Received: 12/24/18 (Continued) Procedure Result Reported Site Gardnerella/Yeast: Vaginal DNA Final (continued) 12/24/18 896 * - Main Lab . END OF REPORT DEPARTMENT OF PATHOLOGY, [address] [place] [address] Barney Miller M.D. Director [facility] # [id number] 11 [id number] 12 [id number] 13 Verbal to SILVANA REDDY by ARGENIS at 1548 on 12/01/18. [id number] 14 Test Performed by: [facility] [place] [address] Model And Pattern Supervisor: Robert Blanco M.D. Ph.D.; CLIA# [id number] 15 ADDITIONAL INFORMATION This test has been modified from the supervisor plasma's instructions. Its performance characteristics were determined by [facility] in a manner consistent with CLIA requirements. This test has not been cleared or approved by the U.S. Food and Drug Administration. Test Performed by: [facility] [place] [address] Model And Pattern Supervisor: Robert Blanco M.D. Ph.D.; CLIA# [id number] Procedures Date Code Description Status 11/30/2018 52843 Visual Acuity Screen Bilat. Completed 11/30/2018 70825 Auditometry, Pure Tone Bilat Completed Medical Devices Description No Information Available Encounters Type Date Location Provider Dx Diagnosis Office Visit 01/01/2019 Main Office Chloe Jimenez NP B34.9 Viral infection, 9:15a unspecified Office Visit 12/07/2018 Main Office Taylor L60.0 Ingrowing nail 1:15p MD Bob Office Visit 11/30/2018 Main Office Taylor Z00.01 Encounter for general 1:45p MD Bob adult medical exam w abnormal findings F33.0 Major depressive disorder, recurrent, mild Z23 Encounter for immunization Office Visit 09/22/2018 2:45p Main Office Sandy Perea NP R51 Headache Assessments Date Code Description Provider 02/08/2019 J02.9 Acute pharyngitis, unspecified Taylor Rojas [...] Headache Sandy Perea NP Plan of Treatment No Information Available Functional Status Description No Information Available Mental Status Description No Information Available Referrals Description No Information Available
[2019-04-03 10:37] VITALS: BP 136/77
--- NOTE | 2019-04-03 10:59 | UC ---
Throat Pain/Nasal Sebastian HPI - HPI Summary HPI Summary: c/o sore throat, ear pain, sinus congestion, non-productive cough that started 3 days ago. Denies any fever. - History of Current Complaint Chief Complaint: UCRespiratory Stated Complaint: THROAT,COUGH,EAR COMPLAINTS Time Seen by Provider: 04/03/19 10:58 Hx Obtained From: Patient Hx Last Menstrual Period: 03/20/2019 Onset/Duration: Sudden Onset, Lasting Days Severity: Severe Pain Intensity: 7 Cough: Nonproductive Associated Signs & Symptoms: Positive: Dysphagia, Sinus Discomfort - Allergies/Home Medications Allergies/Adverse Reactions: Allergies Allergy/AdvReac Type Severity Reaction Status Date / Time No Known Allergies Allergy Verified 04/03/19 10:30 PMH/Surg Hx/FS Hx/Imm Hx Previously Healthy: Yes Other History Of: Negative For: HIV, Hepatitis B, Hepatitis C, Anticoagulant Therapy - Surgical History Surgical History: Yes Surgery Procedure, Year, and Place: Appendectomy, [place] Teeth - Family History Known Family History: Positive: Cardiac Disease, Hypertension, Diabetes - Social History Alcohol Use: Occasionally Substance Use Type: Marijuana Substance Use Comment - Amount & Last Used: occasional Smoking Status (MU): Light Every Day Tobacco Smoker Type: Cigarettes Amount Used/How Often: 6 cigarettes daily Length of Time of Smoking/Using Tobacco: Since Age 14 When Did the Patient Quit Smoking/Using Tobacco: 2016 Household Exposure Type: Cigarettes - Immunization History Most Recent Tetanus Shot: UTD Vaccination Up to Date: Yes Review of Systems All Other Systems Reviewed And Are Negative: Yes Constitutional: Positive: Fatigue ENT: Positive: Sore Throat, Nasal Discharge, Sinus Congestion Respiratory: Positive: Cough Is Patient Immunocompromised?: No Physical Exam Triage Information Reviewed: Yes Appearance: Well-Nourished, Ill-Appearing, Pain Distress Vital Signs: Initial Vital Signs Temp 97.6 F 04/03/19 10:31 Pulse 74 04/03/19 10:31 Resp 18 04/03/19 10:31 BP 136/77 04/03/19 10:31 Pulse Ox 98 04/03/19 10:31 Vital Signs Reviewed: Yes Eye Exam: Normal ENT: Positive: Pharyngeal erythema, TM bulging - bilateral, Tonsillar swelling - on left side, no visible purulence Dental Exam: Normal Neck exam: Normal Respiratory Exam: Normal Cardiovascular Exam: Normal Musculoskeletal Exam: Normal Neurological Exam: Normal Throat Pain/Nasal Course/Dx - Course Course Of Treatment: hx obtained, exam performed ,meds reviewed, - Differential Dx/Diagnosis Differential Diagnosis/HQI/PQRI: Laryngitis, Peritonsillar Abscess, Pharyngitis , Sinusitis, URI Provider Diagnosis: Peritonsillar abscess determined by examination Discharge ED - Sign-Out/Discharge Documenting (check all that apply): Patient Departure All imaging exams completed and their final reports reviewed: No Studies - Discharge Plan Condition: Stable Disposition: HOME Prescriptions: Amoxicillin/Clavulanate TAB* [Augmentin TAB 875*] 875 mg PO BID #20 tab Patient Education Materials: Tonsillitis (ED) Referrals: Taylor Rojas MD [Primary Care Provider] - Additional Instructions: 1. take the medication as prescribed. 2. If not improving in 2 days follow up with ENT 3. If you develop any difficulty swallowing or breathing report immediately to the ER. - Billing Disposition and Condition Condition: STABLE Disposition: Home
== END 2019-04-03 11:17 | disposition home or self-care (01) ==
LOC: UCCORT 10:11
DX: J36 Peritonsillar abscess (principal); J34.89 Other specified disorders of nose and nasal sinuses; R05 Cough; R53.83 Other fatigue; F17.210 Nicotine dependence, cigarettes, uncomplicated
CPT/HCPCS: 99212; G0463